=== PATIENT | female | born 1945 | race Caucasian/White ===

== ENCOUNTER → 2017-08-09 | Outpatient (CLI) | payer MEDICARE ==
[~2017-08-09] MED LIST: AMOXICILLIN 50500 MG PO; BIAXIN500 MG PO; COMBIVENT1 ARO IH; INDOMETHACIN 2525 MG PO; LISINOPRIL 10MG10 MG NG; MEDROL 4MG. DOSE4 MG PO; ONE DAILY WOMEN1 TAB PO; PREMPRO LOW DOS1 TAB PO; SIMVASTATIN20 MG PO; SYNTHROID 0.0.075 MG PO; TYLENOL W/CODEI1 TA2 PO; VITAMIN D1000 IU PO
--- NOTE | 2017-08-10 15:17 | RADIOLOGY REPORT PS360 ---
CT CHEST W/O CONTRAST COMPARISON: Low dose CT screening exam of the chest 04/29/2017 HISTORY: Follow-up possible pulmonary nodule TECHNIQUE: Multiaxial scans obtained from the thoracic inlet the hemidiaphragms and were performed without IV contrast. Sagittal and coronal reformats were evaluated as well. FINDINGS: There is mild hyperexpansion of the lung shaffer. Mild centrilobular emphysematous changes are seen in the upper lobes bilaterally. The questionable nodular densities in the left upper lobe not seen on today's exam. There is a very faint and questionable nodule right upper lobe basely unchanged from previous exam. This could in fact be a tiny post inflammatory scar versus a nodule. The remainder lung shaffer are clear. There is no pleural fluid. There is no abnormal superior mediastinal or hilar lymphadenopathy. There is arteriosclerotic calcification of the aortic arch as noted previously. IMPRESSION: Mild centrilobular emphysematous changes no definite left upper lobe nodules seen on this exam, very questionable faint nodule right upper lobe as described previously. Recommend the patient have a six-month follow-up scan the chest for continuing evaluation, as mentioned this could in fact represent a very tiny post inflammatory scarring not a true nodule.
== END ==
LOC: RAD 12:51
DX: R91.8 Other nonspecific abnormal finding of lung field (principal)
CPT/HCPCS: G0297